=== PATIENT | female | born 1955 | race Caucasian/White ===

== ENCOUNTER 2017-04-09 22:55 | Emergency (ER) | payer SELFPAY ==
[~2017-04-09] VITALS: Ht 170.2 cm; Wt 53.0 kg
[2017-04-09 23:06] VITALS: BP 122/75; PULSE 80; RESP 18; TEMP 98.6; O2SAT 96
[2017-04-09] MEDS ORDERED: GABA300C5 PO (23:33)
[2017-04-09] MEDS ORDERED: ALPR0.25 PO (23:33)
[2017-04-09] MEDS ORDERED: LAMO100T PO (23:33)
[2017-04-10 00:10] VITALS: BP 131/77; PULSE 78; RESP 18; O2SAT 99
[2017-04-10] MEDS ORDERED: SODIUM CHLOR 0.9% 1000 ML INJ 1,000 ML IV SCH (00:58)
[2017-04-10] MEDS ORDERED: KETOROLAC TROMETHAMINE 30 MG/ML (IVP) VIAL IVP ONE (01:00)
--- NOTE | 2017-04-10 01:06 | PD ---
HPI Chief Complaint: Complaint Time Seen by Provider: 00:51 Travel History International Travel<30 days: No Contact w/Intl Traveler<30days: No Traveled to known affect area: No History of Present Illness HPI 62-year-old female complains of anxiety attack, chest pain, abdominal pain, diarrhea, right flank pain. Patient states that she has history kidney stone with back pain for the past 4 years. Patient states that she had lithotripsy in the past. Patient states that she just moved here recently. Patient states that she feeling dehydrated and anxious. Patient states that she has aching headache. Patient denies any visual change. Patient denies any neck pain. Patient denies any coughing congestion. Patient states that she has intermittent aching of the chest. Patient denies any focal weakness or numbness of extremity. Patient was seen by local physician recently and given prescription for alprazolam. Patient states that she has not taken the medication yet. PFSH Past Medical History Bipolar Disorder: Yes Depression: Yes Diminished Hearing: No Kidney Stones: Yes Tetanus Vaccination: Unknown ?: Not Past Surgical History Section: Yes Hysterectomy: Yes Other Surgery: Yes (lithotrypsy) Social History Alcohol Use: No Tobacco Use: No Substance Use: No Allergies-Medications (Allergen,Severity, Reaction): Coded Allergies: acetaminophen (Verified Allergy, Unknown, 04/09/17) liver damage butorphanol (Verified Allergy, Unknown, rash, 04/09/17) Reported Meds & Prescriptions Reported Meds & Active Scripts Active Reported Alprazolam 0.25 Mg Tab 0.25 Mg PO Q6H PRN Lamotrigine 100 Mg Tab 100 Mg PO BID Gabapentin 300 Mg Cap 300 Mg PO TID Review of Systems General / Constitutional: No: Fever Eyes: No: Visual changes HENT: Positive: Headaches Cardiovascular: Positive: Chest Pain or Discomfort Respiratory: No: Shortness of Breath Gastrointestinal: Positive: Diarrhea, Abdominal Pain Genitourinary: No: Dysuria Musculoskeletal: No: Pain Skin: No Rash Neurologic: No: Weakness Psychiatric: No: Depression Endocrine: No: Polydipsia Hematologic/Lymphatic: No: Easy Bruising Physical Exam Narrative GENERAL: Well-nourished, well-developed patient. SKIN: Focused skin assessment warm/dry. HEAD: Normocephalic. EYES: No scleral icterus. No injection or drainage. NECK: Supple, trachea midline. No JVD or lymphadenopathy. CARDIOVASCULAR: Regular rate and rhythm without murmurs, gallops, or rubs. RESPIRATORY: Breath sounds equal bilaterally. No accessory muscle use. GASTROINTESTINAL: Abdomen soft, non-tender, nondistended. MUSCULOSKELETAL: No cyanosis, or edema. BACK: She has moderate tenderness on palpation right flank area, without obvious deformity. Neurologic exam normal. Data Data Last Documented VS Vital Signs Date Time Temp Pulse Resp B/P (MAP) Pulse Ox O2 Delivery O2 Flow Rate FiO2 04/10/17 00:10 78 18 131/77 (95) 99 Room Air 04/09/17 23:06 98.6 Orders Orders Complete Blood Count With Diff (04/10/17 00:58) Comprehensive Metabolic Panel (04/10/17 00:58) Lipase (04/10/17 00:58) Urinalysis - C+S If Indicated (04/10/17 00:58) Ct Abd/Pel W/O Iv Contrast (04/10/17 00:58) Iv Access Insert/Monitor (04/10/17 00:58) Ecg Monitoring (04/10/17 00:58) Oximetry (04/10/17 00:58) Sodium Chlor 0.9% 1000 Ml Inj (Ns 1000 M (04/10/17 00:58) Ketorolac Inj (Toradol Inj) (04/10/17 01:00) Ed Discharge Order (04/10/17 02:22) Labs Laboratory Tests Test 04/10/17 01:05 White Blood Count 6.2 TH/MM3 Red Blood Count 4.03 MIL/MM3 Hemoglobin 12.3 GM/DL Hematocrit 37.3 % Mean Corpuscular Volume 92.5 FL Mean Corpuscular Hemoglobin 30.5 PG Mean Corpuscular Hemoglobin Concent 33.0 % Red Cell Distribution Width 13.0 % Platelet Count 167 TH/MM3 Mean Platelet Volume 9.3 FL Neutrophils (%) (Auto) 56.4 % Lymphocytes (%) (Auto) 35.5 % Monocytes (%) (Auto) 6.6 % Eosinophils (%) (Auto) 0.8 % Basophils (%) (Auto) 0.7 % Neutrophils # (Auto) 3.5 TH/MM3 Lymphocytes # (Auto) 2.2 TH/MM3 Monocytes # (Auto) 0.4 TH/MM3 Eosinophils # (Auto) 0.1 TH/MM3 Basophils # (Auto) 0.0 TH/MM3 CBC Comment DIFF FINAL Differential Comment Urine Color YELLOW Urine Turbidity HAZY Urine pH 7.0 Urine Specific Gleason 1.024 Urine Protein TRACE mg/dL Urine Glucose (UA) NEG mg/dL Urine Ketones NEG mg/dL Urine Occult Blood NEG Urine Nitrite NEG Urine Bilirubin NEG Urine Urobilinogen LESS THAN 2.0 MG/DL Urine Leukocyte Esterase SMALL Urine WBC 4 /hpf Urine Squamous Epithelial Cells <1 /hpf Urine Amorphous Sediment RARE Urine Mucus FEW /lpf Microscopic Urinalysis Comment CULT NOT INDICATED Blood Urea Nitrogen 15 MG/DL Creatinine 0.89 MG/DL Random Glucose 72 MG/DL Total Protein 7.5 GM/DL Albumin 3.7 GM/DL Calcium Level 8.7 MG/DL Alkaline Phosphatase 61 U/L Aspartate Amino Transf (AST/SGOT) 16 U/L Alanine Aminotransferase (ALT/SGPT) 18 U/L Total Bilirubin 0.3 MG/DL Sodium Level 140 MEQ/L Potassium Level 4.0 MEQ/L Chloride Level 107 MEQ/L Carbon Dioxide Level 27.0 MEQ/L Anion Gap 6 MEQ/L Estimat Glomerular Filtration Rate 65 ML/MIN Lipase 520 U/L MDM Medical Decision Making Medical Screen Exam Complete: Yes Emergency Medical Condition: Yes Interpretation(s) Last Impressions Abdomen/Pelvis CT 04/10/17 0058 Signed Impressions: Service Date/Time: Monday, April 10, 2017 01:11 - CONCLUSION: 1. 1 mm stone in the bladder in the distal right UVJ region. 2. There are 2 mm nonobstructing renal stones seen bilaterally in the collecting systems. No hydronephrosis is seen. José Antonio Doss MD 2 19 a.m. CBC CMP within normal limit. Lipase mildly elevated. Differential Diagnosis Differential diagnosis including anxiety, migraine headache, tension headache, cluster headache, gastritis, colitis, UTI, pyelonephritis, nephrolithiasis. Narrative Course 62-year-old female with multiple complaints including headache, chest pain, abdominal pain, diarrhea, anxiety, kidney stone. Normal saline solution 1 L IV bolus. Toradol 30 mg IV. Diagnosis Primary Impression: Nephrolithiasis Additional Impression: Gastroenteritis Patient Instructions: General Instructions Additional Instructions: Take medications as directed. Follow local physician and urologist. Return if worse. Med/Other Pt SpecificInfo: Prescription(s) given Scripts Meloxicam (Mobic) 15 Mg Tab 15 MG PO DAILY for Pain, #20 TAB 0 Refills Prov: John Guillaume MD 04/10/17 Hydroxyzine Pamoate (Vistaril) 25 Mg Cap 25 MG PO TID Y for ANXIETY, #21 CAP 0 Refills Prov: John Guillaume MD 04/10/17 Disposition: 01 DISCHARGE HOME Condition: Stable John Guillaume MD Apr 10, 2017 01:06
[2017-04-10 01:27] LABS: AUTOMATED NEUTROPHIL # 3.5 TH/MM3 (1.8-7.7); BASOPHIL % 0.7 % (0.0-2.0); EOSINOPHIL # 0.1 TH/MM3 (0-0.4); EOSINOPHIL % 0.8 % (0.0-4.0); HEMATOCRIT 37.3 % (35.0-46.0); HEMO FLAGS DIFF FINAL; LYMPH % 35.5 % (9.0-44.0); LYMPHOCYTE # 2.2 TH/MM3 (1.0-4.8); MEAN CELL VOLUME 92.5 FL (80.0-100.0); MEAN CORPUSCULAR HEMOGLOBIN 30.5 PG (27.0-34.0); MONO % 6.6 % (0.0-8.0); NEUT % 56.4 % (16.0-70.0); PLATELET COUNT 167 TH/MM3 (150-450); RED BLOOD COUNT 4.03 MIL/MM3 (4.00-5.30); WHITE BLOOD COUNT 6.2 TH/MM3 (4.0-11.0)
--- NOTE | 2017-04-10 01:35 | RADRPT ---
EXAM DATE/TIME: 04/10/2017 01:11 [facility] COMPARISON: No previous studies available for comparison. INDICATIONS : Right flank pain ORAL CONTRAST: No oral contrast ingested. RADIATION DOSE: 13.28 CTDIvol (mGy) MEDICAL HISTORY : Renal calculi. SURGICAL HISTORY : Hysterectomy. section. ENCOUNTER: Initial ACUITY: 1 day PAIN SCALE: 10/10 LOCATION: Right flank TECHNIQUE: Volumetric scanning of the abdomen and pelvis was performed. Using automated exposure control and ad justment of the mA and/or kV according to patient size, radiation dose was kept as low as reasonably achievable to obtain optimal diagnostic quality images. DICOM format image data is available electro nically for review and comparison. FINDINGS: LOWER LUNGS: The visualized lower lungs are clear. LIVER: Homogeneous density without lesion. There is no dilation of the biliary tree. The patient is status post cholecystectomy. SPLEEN: Normal size without lesion. PANCREAS: Within normal limits. KIDNEYS: There a 2 mm nonobstructing renal stones seen bilaterally. There is a 1 mm stone seen in the posterio r right bladder potentially in the distal right UVJ region. There are several calcifications in the p aidan likely related to phleboliths. Hydronephrosis is not seen. ADRENAL GLANDS: Within normal limits. VASCULAR: There is no aortic aneurysm. BOWEL/MESENTERY: There is prominent debris within the stomach. Dilated bowel is not seen. ABDOMINAL WALL: Within normal limits. RETROPERITONEUM: There is no lymphadenopathy. BLADDER: There is a 1 mm calcification in the posterior right bladder in the region of the distal right UVJ. REPRODUCTIVE: The patient is status post hysterectomy. INGUINAL: There is no lymphadenopathy or hernia. MUSCULOSKELETAL: There is degenerative change in the lumbar spine. CONCLUSION: 1. 1 mm stone in the bladder in the distal right UVJ region. 2. There are 2 mm nonobstructing renal stones seen bilaterally in the collecting systems. No hydronep hrosis is seen. José Antonio Doss MD on April 10, 2017 at 1:28 Board Certified Radiologist. This report was verified electronically.
[2017-04-10 01:47] LABS: ALT (GPT) 18 U/L (10-53); ANION GAP 6 MEQ/L (5-15); AST (GOT) 16 U/L (15-37); BLOOD UREA NITROGEN 15 MG/DL (7-18); CHLORIDE 107 MEQ/L (98-107); GLOMERULAR FILTRATION RATE 65 ML/MIN (>89); SODIUM (NA) 140 MEQ/L (136-145)
[2017-04-10 01:49] LABS: ALKALINE PHOSPHATASE 61 U/L (45-117); TOTAL BILIRUBIN ADULT 0.3 MG/DL (0.2-1.0)
[2017-04-10 01:55] LABS: BLOOD, URINE NEG (NEG); COMMENT (UR) CULT NOT INDICATED; CULTURE IF INDICATED CULT NOT INDICATED; GLUCOSE,URINE NEG (NEG); KETONE, URINE NEG (NEG); MUCUS URINE FEW /lpf (OCC); NITRITE,URINE NEG (NEG); SQUAMOUS EPITHELIAL CELL URINE <1 /hpf (0-5); URINE COLOR YELLOW (YELLW/STRAW)
[2017-04-10 02:23] VITALS: O2SAT 99
[2017-04-10] MEDS ORDERED: VIST25CA PO (02:26)
[2017-04-10] MEDS ORDERED: MOBI15TA PO (02:26)
== END 2017-04-10 02:57 | disposition home or self-care (01) ==
LOC: NEPE 22:55
DX: N13.2 Hydronephrosis with renal and ureteral calculous obstruction (principal); K52.9 Noninfective gastroenteritis and colitis, unspecified; F31.9 Bipolar disorder, unspecified; Z79.899 Other long term (current) drug therapy
CPT/HCPCS: 74176; 80053; 81001; 83690; 85025; 96361; 96374; 99285; J1885; J7030